=== PATIENT | female | born 1965 | race American Indian/Alaskan Native ===

== ENCOUNTER 2021-08-25 17:22 | Emergency (ER) | payer SELFPAY ==
--- NOTE | 2021-08-25 18:54 | Emergency Department Report ---
ED CPR HPI - General Chief Complaint: Cardiac Arrest/CPR Stated Complaint: CARDIAC ARREST Time Seen by Provider: 08/25/21 18:36 Source: EMS Mode of arrival: Stretcher Limitations: Other - History of Present Illness Initial Comments: Patient is a 56-year-old female [place] witnessed cardiac arrest in the bathroom. EMS states patient was initially asystole on arrival and remained in asystole in route. She was given a total of 5 rounds of epi and 1 amp of bicarb. - Related Data Allergies Allergy/AdvReac Type Severity Reaction Status Date / Time Unable to Assess Allergy Unverified 08/25/21 17:36 ED Review of Systems ROS: Stated complaint: CARDIAC ARREST Other details as noted in HPI Comment: Unobtainable due to pts medical conditions ED Physical Exam - General Limitations: Other General appearance: other (Unresponsive) - Head Head exam: Present: atraumatic, normocephalic - Eye Pupils: Present: other (Pupils fixed) - Respiratory Respiratory exam: Present: other (No spontaneous respirations. Advanced airway in place with patient being bagged) - Cardiovascular Cardiovascular Exam: Present: other (Mechanical compression device in place. No palpable pulse) - GI/Abdominal GI/Abdominal exam: Present: soft. Absent: distended - Rectal Rectal exam: Present: deferred - Neurological Exam Neurological exam: Present: other (GCS 3 T) - Skin Skin exam: Present: normal color, other (Skin cool to touch) ED Medical Decision Making - Medical Decision Making Initial rhythm on arrival asystole. ACLS measures continued for another 2 rounds with no change in rhythm. Patient at 17:20. Critical care attestation.: If time is entered above; I have spent that time in minutes in the direct care of this critically ill patient, excluding procedure time. ED Disposition Clinical Impression: Cardiac arrest Disposition: 20 Is pt being admited?: No Does the pt Need Aspirin: No
== END 2021-08-25 19:00 ==
LOC: ED 17:22
DX: I46.9 Cardiac arrest, cause unspecified (principal)
CPT/HCPCS: 92950; 99285